=== PATIENT | female | born 1985 | race Caucasian/White ===

== ENCOUNTER 2019-07-02 08:19 | Emergency (ER) | payer BC, OTHER ==
[~2019-07-02] VITALS: Ht 175.3 cm; Wt 56.7 kg
[~2019-07-02 08:19] MED LIST: FIORICET1 EA ORAL; NKM
[2019-07-02 08:31] VITALS: BP 122/75
--- NOTE | 2019-07-02 08:31 | NUR ---
ED Nurse Note: PT FROM HOME WALKED IN DUE TO NUMBNESS THAT STARTS FROM HER RIGHT EAR AND GOES DOWN TO HER RIGHT ARM AND RIGHT LEG SINCE SATURDAY. PT ALSO STATES SHE HAS A HEADACHE WITH DIZZINESS AND WAS HAVING DIARRHEA ALL DAY YESTERDAY. AAO X4 AND AMBULATES WITH STEADY GAIT WITH NON LABORED BREATHING.
[2019-07-02] MEDS ORDERED: NKM (08:41)
--- NOTE | 2019-07-02 08:42 | Emergency Room Report ---
History of Present Illness General Chief Complaint: General Complaint Source: Patient Present Illness HPI Patient is a 34-year-old female presents after increased headache and diarrhea. She reports having right upper and lower extremity numbness. She denies any weakness. She reports having some episodes of watery diarrhea. She states she has had multiple days of generalized weakness. She denies any prior medical history. She does not take medications regularly. She reports recent normal menses. She states she finished her period yesterday. She denies any vomiting. She denies any bloody stools. She denies recent alcohol or drug use. Allergies: Coded Allergies: No Known Allergies (Unverified , 11/07/14) Patient History Past Medical History: see triage record Last Menstrual Period: 06/27/19 Reviewed Nursing Documentation: PMH: Agreed; PSxH: Agreed Nursing Documentation-PMH Past Medical History: No Stated History Review of Systems All Other Systems: negative except mentioned in HPI Physical Exam Vital Signs Date Time Temp Pulse Resp B/P (MAP) Pulse Ox O2 Delivery O2 Flow Rate FiO2 07/02/19 08:21 98.1 98 18 113/78 (90) 99 Room Air Sp02 EP Interpretation: reviewed, normal General Appearance: normal inspection, well appearing, no apparent distress, alert, GCS 15 Head: atraumatic ENT: normal ENT inspection, hearing grossly normal, normal voice Neck: normal inspection, full range of motion, supple, no bony tend Respiratory: normal inspection, lungs clear, normal breath sounds, no respiratory distress, no retraction, no wheezing Cardiovascular #1: regular rate, rhythm, no edema Gastrointestinal: normal inspection, normal bowel sounds, non tender, soft, no guarding, no hernia Genitourinary: no CVA tenderness Musculoskeletal: normal inspection, back normal, normal range of motion Neurologic: normal inspection, alert, oriented x3, responsive, coat maker III-XII nml as tested, speech normal Psychiatric: normal inspection, judgement/insight normal, mood/affect normal Medical Decision Making Diagnostic Impression: Primary Impression: Headache Additional Impressions: Paresthesia Leukopenia ER Course Patient presented for right upper and lower extremity paresthesias. Differential diagnosis include was not limited to CVA, multiple sclerosis, vitamin deficiency, vascular injury among others. Because of complexity of patient's case laboratory tests and imaging studies were ordered. Patient was noted to have some concerning symptoms without any evident motor deficit. Extremities appear to be well perfused with good pulses. Patient does not have any motor deficit or pronator drift. She is no evidence of slurring of her speech or facial droop. MRI was ordered due to patient's symptomatology. MRI showed some nonspecific white matter changes. See radiology report for full details. Patient was advised of laboratory findings including low white blood count. She was advised to follow-up with primary care physician for further evaluation of leukopenia. Patient is advised to follow-up with neurology for further evaluation. She was advised to return if worse. The patient is advised to follow up with primary care doctor in 1-2 days. Patient is advised to return if any worsening condition or if any changes in status that are concerning. This report is dictated with [employer] photograph finisher software which may occasionally lead to discrepancies related to use of this software. Labs Test 07/02/19 08:45 White Blood Count 2.7 K/UL (4.8-10.8) Red Blood Count 4.06 M/UL (4.20-5.40) Hemoglobin 11.7 G/DL (12.0-16.0) Hematocrit 36.3 % (37.0-47.0) Mean Corpuscular Volume 89 FL (80-99) Mean Corpuscular Hemoglobin 28.9 PG (27.0-31.0) Mean Corpuscular Hemoglobin Concent 32.3 G/DL (32.0-36.0) Red Cell Distribution Width 13.7 % (11.6-14.8) Platelet Count 285 K/UL (150-450) Mean Platelet Volume 5.3 FL (6.5-10.1) Neutrophils (%) (Auto) % (45.0-75.0) Lymphocytes (%) (Auto) % (20.0-45.0) Monocytes (%) (Auto) % (1.0-10.0) Eosinophils (%) (Auto) % (0.0-3.0) Basophils (%) (Auto) % (0.0-2.0) Differential Total Cells Counted 100 Neutrophils % (Manual) 67 % (45-75) Lymphocytes % (Manual) 19 % (20-45) Monocytes % (Manual) 12 % (1-10) Eosinophils % (Manual) 2 % (0-3) Basophils % (Manual) 0 % (0-2) Band Neutrophils 0 % (0-8) Platelet Estimate Adequate Platelet Morphology Normal Red Blood Cell Morphology Normal Prothrombin Time 10.9 SEC (9.30-11.50) Prothromb Time International Ratio 1.0 (0.9-1.1) Activated Partial Thromboplast Time 28 SEC (23-33) Urine Color Yellow Urine Appearance Slightly cloudy Urine pH 6 (4.5-8.0) Urine Specific Campbell 1.015 (1.005-1.035) Urine Protein 2+ (NEGATIVE) Urine Glucose (UA) Negative (NEGATIVE) Urine Ketones 1+ (NEGATIVE) Urine Blood 5+ (NEGATIVE) Urine Nitrite Negative (NEGATIVE) Urine Bilirubin Negative (NEGATIVE) Urine Urobilinogen 1 MG/DL (0.0-1.0) Urine Leukocyte Esterase 1+ (NEGATIVE) Urine RBC 5-10 /HPF (0 - 2) Urine WBC 0-2 /HPF (0 - 2) Urine Squamous Epithelial Cells Moderate /LPF (NONE/OCC) Urine Bacteria Few /HPF (NONE) Urine Mucus Few /LPF (NONE/OCC) Urine HCG, Qualitative Negative (NEGATIVE) Sodium Level 138 MMOL/L (136-145) Potassium Level 3.7 MMOL/L (3.5-5.1) Chloride Level 105 MMOL/L (98-107) Carbon Dioxide Level 28 MMOL/L (21-32) Anion Gap 5 mmol/L (5-15) Blood Urea Nitrogen 8 mg/dL (7-18) Creatinine 0.8 MG/DL (0.55-1.30) Estimat Glomerular Filtration Rate > 60 mL/min (>60) Glucose Level 106 MG/DL (74-106) Calcium Level 9.2 MG/DL (8.5-10.1) Total Bilirubin 0.3 MG/DL (0.2-1.0) Aspartate Amino Transf (AST/SGOT) 40 U/L (15-37) Alanine Aminotransferase (ALT/SGPT) 31 U/L (12-78) Alkaline Phosphatase 54 U/L (46-116) Troponin I 0.000 ng/mL (0.000-0.056) Total Protein 7.9 G/DL (6.4-8.2) Albumin 4.0 G/DL (3.4-5.0) Globulin 3.9 g/dL Albumin/Globulin Ratio 1.0 (1.0-2.7) Thyroid Stimulating Hormone (TSH) 0.851 uiU/mL (0.358-3.740) Urine Opiates Screen Negative (NEGATIVE) Urine Barbiturates Screen Negative (NEGATIVE) Phencyclidine (PCP) Screen Negative (NEGATIVE) Urine Amphetamines Screen Negative (NEGATIVE) Urine Benzodiazepines Screen Negative (NEGATIVE) Urine Cocaine Screen Negative (NEGATIVE) Urine Marijuana (THC) Screen Negative (NEGATIVE) Last Vital Signs Date Time Temp Pulse Resp B/P (MAP) Pulse Ox O2 Delivery O2 Flow Rate FiO2 07/02/19 08:21 98.1 98 18 113/78 (90) 99 Room Air Status: improved Disposition: HOME, SELF-CARE Condition: Stable Scripts Dicyclomine Hcl* (DICYCLOMINE HCL*) 10 Mg Capsule 10 MG ORAL QID, #20 CAP Prov: Delvis Ace MD 07/02/19 Ondansetron (Zofran) 4 Mg Tablet 4 MG ORAL Q6H PRN for Nausea & Vomiting, #30 TAB 0 Refills Prov: Delvis Ace MD 07/02/19 Delvis Ace MD Jul 02, 2019 08:42
[2019-07-02] MEDS ORDERED: Gadavist 7.5mMol/7.5ml vial IV PRN (08:45)
--- NOTE | 2019-07-02 08:53 | NUR ---
ED Nurse Note: COLLECTED BLOOD/URINE THEN SENT.
--- NOTE | 2019-07-02 08:57 | NUR ---
ED Nurse Note: PT TAKEN TO MRI VIA WHEELCHAIR AND STABLE.
[2019-07-02 09:07] LABS: HEMATOCRIT 36.3 % (37.0-47.0); HEMOGLOBIN 11.7 G/DL (12.0-16.0); MEAN CORPUSCULAR VOLUME 89 FL (80-99); PLATELET COUNT 285 K/UL (150-450); RED BLOOD COUNT 4.06 M/UL (4.20-5.40); RED CELL DISTRIBUTION WIDTH 13.7 % (11.6-14.8); WHITE BLOOD COUNT 2.7 K/UL (4.8-10.8)
[2019-07-02 09:09] LABS: APPEARANCE,URINE SLIGHTLY CLOUDY; BILIRUBIN, URINE NEGATIVE (NEGATIVE); GLUCOSE, URINE (UA) NEGATIVE (NEGATIVE); KETONES,URINE 1+ (NEGATIVE); LEUKOCYTE ESTERASE ,URINE 1+ (NEGATIVE); NITRITE,URINE NEGATIVE (NEGATIVE); PH,URINE 6 (4.5-8.0); PROTEIN,URINE 2+ (NEGATIVE); UROBILINOGEN,URINE 1 MG/DL (0.0-1.0)
[2019-07-02 09:16] LABS: ANION GAP 5 mmol/L (5-15); BLOOD UREA NITROGEN 8 mg/dL (7-18); CALCIUM 9.2 MG/DL (8.5-10.1); CARBON DIOXIDE 28 MMOL/L (21-32); CHLORIDE 105 MMOL/L (98-107); CREATININE 0.8 MG/DL (0.55-1.30); POTASSIUM 3.7 MMOL/L (3.5-5.1); SODIUM 138 MMOL/L (136-145)
[2019-07-02 09:22] LABS: COLOR,URINE YELLOW
[2019-07-02 09:29] LABS: ALANINE AMINOTRANSFERASE 31 U/L (12-78); ALKALINE PHOSPHATASE 54 U/L (46-116); ASPARTATE AMINO TRANSFERASE 40 U/L (15-37); BILIRUBIN,TOTAL 0.3 MG/DL (0.2-1.0)
--- NOTE | 2019-07-02 09:33 | NUR ---
ED Nurse Note: PT CAME BACK FROM MRI AND STABLE.
--- NOTE | 2019-07-02 10:21 | Diagnostic Imaging Report ---
Indication: Headache, right upper and lower extremity numbness Technique: sagittal T1 fast spin echo, axial T1 FLAIR, axial and sagittal T2 FLAIR, axial T2 FS PROPELLER, axial T2* GRE, axial diffusion weighted images. ADC and exponential ADC maps generated Comparison: none Findings: No abnormal areas of restricted diffusion to suggest acute infarction. No acute hemorrhage or edema. No mass effect nor midline shift. Normal size ventricles and extra axial CSF spaces. There is very slight increased T2 signal about the posterior and anterior bodies of the lateral ventricles bilaterally. A few tiny foci of increased T2 signal in the periventricular deep white matter bilaterally most likely represent prominent perivascular spaces. There is minimal bilateral maxillary and ethmoid sinus mucosal disease. Impression: Minimal increased periventricular T2 signal. This is a nonspecific finding, may reflect early periventricular microvascular disease. Otherwise unremarkable exam. Negative for acute intracranial bleed, mass effect, or infarct Minimal sinus disease
[2019-07-02 10:32] VITALS: BP 129/84
[2019-07-02] MEDS ORDERED: ZOFRAN4 MG ORAL (11:06)
[2019-07-02] MEDS ORDERED: DICYCLOMINE HCL10 MG ORAL (11:06)
[2019-07-02 11:14] VITALS: BP 114/61
--- NOTE | 2019-07-02 11:14 | NUR ---
ER DISCHARGE NOTE: Patient is cleared to be discharged per ERMD, pt is aox4, on room air, with stable vital signs. pt was given dc instructions, pt was able to verbalize understanding, pt id band and iv site removed without complications. pt is able to ambulate with steady gait. pt took all belongings.
--- NOTE | 2019-07-06 12:16 | Cardiology Report ---
APPROVED REPORT EKG Measurement Heart [id number] Normal sinus rhythm Normal ECG
== END 2019-07-02 11:14 | disposition home or self-care (01) ==
LOC: EMR 08:58
DX: R51 Headache (principal); R19.7 Diarrhea, unspecified
CPT/HCPCS: 36415; 70551; 80053; 80307; 81001; 81025; 82962; 84443; 84484; 85007; 85025; 85610; 85730; 93005; 96365; 99284; J7030